=== PATIENT | male | born 1970 | race African-American/Black ===

== ENCOUNTER 2024-02-25 20:45 | Emergency (ER) | payer MEDICARE, MEDICAID ==
[~2024-02-25] VITALS: Ht 172.7 cm; Wt 80.5 kg
[~2024-02-25 20:45] MED LIST: ELIMITE TOP
[2024-02-25 20:50] VITALS: BP 128/77; PULSE 87; TEMP 98
[2024-02-25] MEDS ORDERED: NS 1,000 ML IV ONE (21:45)
== END 2024-02-25 22:00 | disposition left against medical advice (07) ==
LOC: COL.ER 20:45
DX: R53.81 Other malaise (principal); Z59.00 Homelessness unspecified

== ENCOUNTER 2024-06-01 22:21 | Emergency (ER) | payer MEDICARE, MEDICAID ==
[~2024-06-01] VITALS: Ht 172.7 cm; Wt 71.8 kg
[2024-06-01 22:38] VITALS: TEMP 98.1
[2024-06-01 23:54] LABS: BASO % 0.3 % (0.0-2.0); EOS # 0.3 K/mm3 (0.0-0.7); EOS % 5.7 % (0.0-4.0); GRAN # 3.7 K/mm3 (1.4-6.5); HEMOGLOBIN 13.3 g/dl (13.5-18.0); LYMPH # 0.9 K/mm3 (1.2-3.4); LYMPH % 15.6 % (20.0-51.0); MEAN CELL VOLUME 84 fl (80.0-100.0); MEAN CORPUSCULAR HEMOGLOBIN 27 pg (27-31); MEAN CORPUSCULAR HGB CONC 32 g/dl (33.0-37.0); MEAN PLATELET VOLUME 9.4 fl (7.4-10.4); MONO # 0.8 K/mm3 (0.1-0.6); MONO % 14.1 % (1.7-9.3); PLATELET COUNT 262 K/mm3 (130-400); RED BLOOD COUNT 4.98 M/mm3 (4.20-5.60); REDCELL DISTRIBUTION WIDTH-CV 14.6 % (11.5-14.5)
[2024-06-02 00:15] LABS: ALANINE AMINOTRANSFERASE 17 U/L (0-55); ALBUMIN 3.6 g/dL (3.5-5.0); ALKALINE PHOSPHATASE 62 U/L (40-150); ANION GAP 11 mmol/L (7-16); AST,SGOT 17 U/L (5-34); BILIRUBIN,TOTAL 0.2 mg/dL (0.2-1.2); BLOOD UREA NITROGEN 8 mg/dL (8-26); CALCIUM 9.2 mg/dL (8.4-10.2); CHLORIDE 108 mEq/L (98-107); CREATININE, serum 1.04 mg/dL (0.72-1.25); GLUCOSE 100 mg/dL (70-99); POTASSIUM 4.2 mEq/L (3.5-4.5); SODIUM 140 mEq/L (136-145); TOTAL PROTEIN 6.5 g/dl (6.2-8.1)
[2024-06-02 00:23] LABS: TROPONIN-I < 0.010 ng/mL (0.00-0.033)
[2024-06-02 01:13] VITALS: BP 142/70; PULSE 64
== END 2024-06-02 01:14 | disposition home or self-care (01) ==
LOC: COL.ER 22:21
PROVIDERS: Nurse Practitioner Primary Care
DX: I10 Essential (primary) hypertension (principal)

== ENCOUNTER 2024-06-03 22:17 | Emergency (ER) | payer MEDICARE, MEDICAID ==
[~2024-06-03] VITALS: Ht 172.7 cm; Wt 77.3 kg
[2024-06-03 23:25] LABS: BASO % 0.4 % (0.0-2.0); EOS # 0.1 K/mm3 (0.0-0.7); EOS % 1.7 % (0.0-4.0); GRAN # 3.6 K/mm3 (1.4-6.5); GRAN % 66.8 % (42.2-75.2); HEMATOCRIT 44.6 % (42.0-52.0); HEMOGLOBIN 13.9 g/dl (13.5-18.0); LYMPH % 19.4 % (20.0-51.0); MEAN CELL VOLUME 85 fl (80.0-100.0); MEAN CORPUSCULAR HEMOGLOBIN 27 pg (27-31); MEAN CORPUSCULAR HGB CONC 31 g/dl (33.0-37.0); MEAN PLATELET VOLUME 9.6 fl (7.4-10.4); MONO # 0.6 K/mm3 (0.1-0.6); MONO % 11.5 % (1.7-9.3); PLATELET COUNT 248 K/mm3 (130-400); RED BLOOD COUNT 5.24 M/mm3 (4.20-5.60); REDCELL DISTRIBUTION WIDTH-CV 14.7 % (11.5-14.5)
[2024-06-03] MEDS ORDERED: Ibuprofen 400 MG TAB PO ONE (23:30)
[2024-06-03] MEDS ORDERED: Acetaminophen 500 MG TAB PO ONE (23:30)
[2024-06-03 23:45] LABS: ALBUMIN 3.6 g/dL (3.5-5.0); BILIRUBIN,TOTAL 0.1 mg/dL (0.2-1.2); CALCIUM 9.1 mg/dL (8.4-10.2); CREATININE, serum 0.99 mg/dL (0.72-1.25); POTASSIUM 3.8 mEq/L (3.5-4.5); TOTAL PROTEIN 6.5 g/dl (6.2-8.1)
[2024-06-03 23:51] LABS: TROPONIN-I 0.016 ng/mL (0.00-0.033)
[2024-06-04] MEDS ORDERED: Azithromycin 250 MG TAB PO ONE (00:45)
[2024-06-04] MEDS ORDERED: ZITHROMAX Z PA250 MG PO (00:48)
[2024-06-04 01:00] VITALS: BP 148/95; PULSE 84; TEMP 99.1
[2024-06-05] MEDS ORDERED: MINIPRESS 1M1 MG/CAP PO (02:22)
[2024-06-05] MEDS ORDERED: PRINIVIL10 MG PO (02:23)
[2024-06-05] MEDS ORDERED: TRILAFON 2MG TAB2 MG PO (02:23)
[2024-06-05] MEDS ORDERED: LIPITOR20 MG PO (02:23)
[2024-06-05] MEDS ORDERED: NATURAL IRON65 MG PO (09:37)
== END 2024-06-04 01:00 | disposition home or self-care (01) ==
LOC: COL.ER 22:17
PROVIDERS: Nurse Practitioner Primary Care
DX: R07.89 Other chest pain (principal)

== ENCOUNTER 2024-06-04 18:56 | Observation (INO) | payer MEDICARE, MEDICAID ==
[~2024-06-04] VITALS: Ht 172.7 cm; Wt 79.1 kg
[~2024-06-04 18:56] MED LIST changes: +ZITHROMAX Z PA250 MG PO
[2024-06-04 21:44] LABS: BASO % 0.2 % (0.0-2.0); EOS # 0.1 K/mm3 (0.0-0.7); EOS % 1.3 % (0.0-4.0); GRAN # 2.9 K/mm3 (1.4-6.5); HEMOGLOBIN 13.6 g/dl (13.5-18.0); LYMPH # 1.7 K/mm3 (1.2-3.4); LYMPH % 32.3 % (20.0-51.0); MEAN CELL VOLUME 84 fl (80.0-100.0); MEAN CORPUSCULAR HEMOGLOBIN 27 pg (27-31); MEAN CORPUSCULAR HGB CONC 32 g/dl (33.0-37.0); MEAN PLATELET VOLUME 9.3 fl (7.4-10.4); MONO # 0.6 K/mm3 (0.1-0.6); MONO % 11.2 % (1.7-9.3); PLATELET COUNT 248 K/mm3 (130-400); RED BLOOD COUNT 5.02 M/mm3 (4.20-5.60); REDCELL DISTRIBUTION WIDTH-CV 14.6 % (11.5-14.5)
[2024-06-04 21:53] LABS: PROTHROMBIN TIME 11.2 SECONDS (9.7-12.8)
[2024-06-04 21:56] LABS: PARTIAL THROMBOPLASTIN TIME 31.8 SECONDS (26.0-37.0)
[2024-06-04 21:57] LABS: D-DIMER < 200.00 ng/mLDDu (200-230)
[2024-06-04 22:05] LABS: ALBUMIN 3.7 g/dL (3.5-5.0); BILIRUBIN,TOTAL 0.2 mg/dL (0.2-1.2); CALCIUM 9.5 mg/dL (8.4-10.2); CREATININE, serum 0.92 mg/dL (0.72-1.25); TOTAL PROTEIN 6.7 g/dl (6.2-8.1)
[2024-06-04] MEDS ORDERED: Acetaminophen 500 MG TAB PO ONE (23:15)
[2024-06-04] MEDS ORDERED: NS 1,000 ML IV ONE (23:15)
[2024-06-04] MEDS ORDERED: Azithromycin 250 MG TAB PO ONE (23:45)
[2024-06-05] VITALS (9 sets, daily range): BP systolic 113–171; BP diastolic 71–101; PULSE 66–85; TEMP 97.8–99.1
[2024-06-05] MEDS ORDERED: Morphine 4 MG/ML VIAL IV ONE (00:15)
[2024-06-05 01:56] LABS: PH 5.5 (5.0-8.5); URINE APPEARANCE CLEAR (CLEAR/HAZY); URINE BLOOD NEGATIVE (NEGATIVE); URINE COLOR YELLOW (YELLOW); URINE GLUCOSE NEGATIVE (NEGATIVE); URINE KETONE NEGATIVE (NEGATIVE); URINE NITRATE NEGATIVE (NEGATIVE); URINE PROTEIN(semi-quant) NEGATIVE (NEGATIVE); URINE UROBILINOGEN 0.2 E.U/dL (0.2-1.0)
[2024-06-05 02:14] LABS: COLLECTION METHOD CLEAN CATCH
[2024-06-05] MEDS ORDERED: Ondansetron 4 MG/2 ML VIAL IV PRN (02:15)
[2024-06-05] MEDS ORDERED: Docusate Sodium 100 MG CAP PO PRN (02:15)
[2024-06-05] MEDS ORDERED: Acetaminophen 325 MG TAB PO PRN (02:15)
[2024-06-05] MEDS ORDERED: MINIPRESS 1M1 MG/CAP PO (02:22)
[2024-06-05] MEDS ORDERED: PRINIVIL10 MG PO (02:23)
[2024-06-05] MEDS ORDERED: LIPITOR20 MG PO (02:23)
[2024-06-05] MEDS ORDERED: TRILAFON 2MG TAB2 MG PO (02:23)
[2024-06-05] MEDS ORDERED: Iohexol 300 - 100 ML VIAL IV ONE (02:30)
[2024-06-05] MEDS ORDERED: NS 50 ML IV ONE (02:31)
[2024-06-05] MEDS ORDERED: Perphenazine 2 MG TAB PO SCH (09:00)
[2024-06-05] MEDS ORDERED: Lisinopril 10 MG TAB PO SCH (09:00)
[2024-06-05] MEDS ORDERED: NATURAL IRON65 MG PO (09:37)
--- NOTE | 2024-06-05 09:40 | NUR ---
PATIENT ARRIVED TO MEDICAL FLOOR AT APPROX 0930. ALERT AND ORIENTED. PATIENT AMBULATES TO BED WELL.
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
[2024-06-05] MEDS ORDERED: Ketorolac 15 MG/ML VIAL IV PRN (11:45)
[2024-06-05] MEDS ORDERED: Perphenazine 2 MG TAB PO ONE (12:00)
--- NOTE | 2024-06-05 12:29 | NUR ---
optical worker received a consult reporting pt wanting "his body to go to babies." ANA notes pt arrived from the [facility]. SW met with pt to discuss discharge planning. He reports to have come from the [facility], but is homeless and does intend to return to the [facility]. He also reports to not want to go to [facility] either. He states they are "glitches" and don't appear to understand him. He was fine to return back to his spot in the community. He informs SW that he sees Therapist Anushka at [facility] and is compliant with her. He states he is getting housing assistance with [facility] and has a meeting next week with a case management assistant. Pt sees Dr. Samuel for PCP needs and obtains medications from [facility] with no issues. He verified to have Medicare A/B and Medicaid insurance. He is independent with ADLS and uses a cane for DME. HE would be interested in getting another, if insurance allowed. SW advised she will check on if this was doable. He did not have a DPOA-HC or contact listed. He informed SW he has children and is legally , but . He expressed to be close with daughter, Tova Nino [phone], son, Wally Dominique, and daughter, Suzanne. He reports that he has talked with his daughter about being here and that he won't "bounce back." Pt was willing to do a DPOA-HC listing his daughter, Tova. ANA and JEANNE Murillo witnessed this and pt signed. Pt reports he wanted to be an organ/tissue donor for children and youth; this was written in. Copies and original provided. Copy in chart. Pt has no other needs and RN was updated on d/c plan. Discharge Plan: homeless, will return to community by choice
--- NOTE | 2024-06-05 12:35 | NUR ---
PATIENT C/O BODY ACHES AND CHILLS. THIS RN CHECKED PT ORAL TEMP. TEMP IS 98.2. THIS RN ADMINISTERED TYLENOL FOR ACHES AND ENCOURAGED PATIENT TO EAT LUNCH/DRINK WATER.
--- NOTE | 2024-06-05 19:15 | NUR ---
PATIENT RESTING IN BED LYING ON BACK WITH TV OFF WITH NO FAMILY PRESENT WITH NO ACUTE DISTRESS NOTED. PATIENT ON ROOM AIR. INT TO RIGHT AC INTACT WITH NO COMPLICATIONS NOTED. TELEMETRY INTACT. BEDSIDE SHIFT REPORT COMPLETED WITH HUI AT THIS TIME. PATIENT REQUESTED SANDWITCH AND APPLE JUICE. BOTH GIVEN. ALL NEEDS MET. BED IN LOW POSITION WITH WHEELS LOCKED WITH RAILS UP X3 AND CALL LIGHT WITHIN REACH.
--- NOTE | 2024-06-05 19:35 | NUR ---
DR. SALAZAR IN TO SEE PATIENT AT THIS TIME.
--- NOTE | 2024-06-05 20:42 | NUR ---
PATIENT RESTING IN BED WITH TV OFF WITH NO FAMILY PRESENT WITH NO ACUTE DISTRESS NOTED. PATIENT ON ROOM AIR. INT TO RIGHT AC INTACT WITH NO COMPLICATIONS NOTED. TELEMETRY INTACT. ASSESSMENT AND MEDICATION ADMINISTRATION COMPLETED AT THIS TIME. PATIENT C/O PAIN IN LEFT SHOULDER. PATIENT STATES PAIN LEVEL 10/10. PO TYLENOL GIVEN PER MD ORDER. PATIENT REQUESTED A SPRITE AND WAS GIVEN. ALL NEEDS MET. BED IN LOW POSITION WITH WHEELS LOCKED WITH RAILS UP X3 AND CALL LIGHT WITHIN REACH.
[2024-06-05] MEDS ORDERED: Azithromycin 250 MG TAB PO SCH (21:00)
[2024-06-05] MEDS ORDERED: Atorvastatin 20 MG TAB PO SCH (21:00)
[2024-06-05] MEDS ORDERED: Prazosin 1 MG CAP PO SCH (21:00)
[2024-06-06] VITALS: BP_SYST 113
[2024-06-06 03:10] VITALS: BP 140/85; PULSE 74; TEMP 99.2
[2024-06-06 04:00] VITALS: BP_SYST 140
[2024-06-06 07:01] LABS: CALCIUM 8.4 mg/dL (8.4-10.2); CREATININE, serum 0.86 mg/dL (0.72-1.25); POTASSIUM 4.3 mEq/L (3.5-4.5)
[2024-06-06 07:14] VITALS: BP 126/81; PULSE 65; TEMP 98.2
[2024-06-06 07:22] LABS: BASO % 0.3 % (0.0-2.0); EOS % 0.9 % (0.0-4.0); GRAN # 1.9 K/mm3 (1.4-6.5); GRAN % 52.6 % (42.2-75.2); HEMATOCRIT 40.7 % (42.0-52.0); HEMOGLOBIN 13.1 g/dl (13.5-18.0); LYMPH # 1.3 K/mm3 (1.2-3.4); LYMPH % 36.5 % (20.0-51.0); MEAN CELL VOLUME 83 fl (80.0-100.0); MEAN CORPUSCULAR HEMOGLOBIN 27 pg (27-31); MEAN CORPUSCULAR HGB CONC 32 g/dl (33.0-37.0); MEAN PLATELET VOLUME 9.6 fl (7.4-10.4); MONO # 0.3 K/mm3 (0.1-0.6); MONO % 9.4 % (1.7-9.3); PLATELET COUNT 231 K/mm3 (130-400); RED BLOOD COUNT 4.91 M/mm3 (4.20-5.60); REDCELL DISTRIBUTION WIDTH-CV 14.6 % (11.5-14.5)
[2024-06-06 08:00] VITALS: BP_SYST 126
[2024-06-06] MEDS ORDERED: Perphenazine 2 MG TAB PO SCH (09:00)
[2024-06-06 09:07] LABS: CHOLESTEROL RISK RATIO 3.8
[2024-06-06] MEDS ORDERED: IBU400 MG PO (09:10)
--- NOTE | 2024-06-06 10:18 | NUR ---
THIS RN PROVIDED PATIENT WITH DISCHARGE EDUCATION AND INSTRUCTIONS. ALL QUESTIONS ANSWERED. IV TO RIGHT AC DISCONTINUED. CATHETER INTACT. DENIES FURTHER NEEDS OR CONCERNS AT THIS TIME.
--- NOTE | 2024-06-06 10:43 | NUR ---
PATIENT ESCORTED OFF UNIT AT APPROX 1027. ALL BELONGINGS WITH PATIENT.
--- NOTE | 2024-06-06 14:28 | NUR ---
Market Research Lead met with patient who is cleared to discharge today. Patient plans to discharge to the community. SW discussed the [facility], [facility], [facility], and possibly staying with family. Patient not interested in any of these options. ANA provided [facility] Resource Guide and Common Table schedule. Patient accepted them but stated "he does not mess with them". ANA provided patient with a change of clothes, toiletries, extra socks and a duffel bag. ANA also made a report to APS, intake #[id number].
== END 2024-06-06 10:27 | disposition home or self-care (01) ==
LOC: COL.ER 18:56 → MEDICAL 06-05 02:33
PROVIDERS: Emergency Medicine; Nurse Practitioner Family; ADMIT Internal Medicine
DX: R07.89 Other chest pain (principal); I25.10 Atherosclerotic heart disease of native coronary artery without angina pectoris; R65.10 Systemic inflammatory response syndrome (SIRS) of non-infectious origin without acute organ dysfunction; K22.89 Other specified disease of esophagus; R91.1 Solitary pulmonary nodule; I10 Essential (primary) hypertension; E78.5 Hyperlipidemia, unspecified; M25.512 Pain in left shoulder; F20.0 Paranoid schizophrenia; F17.210 Nicotine dependence, cigarettes, uncomplicated; Z79.899 Other long term (current) drug therapy
CPT/HCPCS: G0378; J1885; J2270; J7030; Q9967

== ENCOUNTER 2024-06-07 23:04 | Emergency (ER) | payer OTHER, MEDICAID ==
[~2024-06-07] VITALS: Ht 172.7 cm; Wt 77.3 kg
[~2024-06-07 23:04] MED LIST changes: +IBU400 MG PO; +LIPITOR20 MG PO; +MINIPRESS 1M1 MG/CAP PO; +NATURAL IRON65 MG PO; +PRINIVIL10 MG PO; +TRILAFON 2MG TAB2 MG PO
[2024-06-07 23:05] VITALS: BP 145/99; TEMP 97.4
[2024-06-08] MEDS ORDERED: ROBAXIN 50500 MG/TAB PO (01:42)
[2024-06-08 02:00] VITALS: PULSE 74
== END 2024-06-08 02:00 | disposition home or self-care (01) ==
LOC: COL.ER 23:04
DX: M25.512 Pain in left shoulder (principal); F17.200 Nicotine dependence, unspecified, uncomplicated